=== PATIENT | female | born 1955 | race Caucasian/White ===

== ENCOUNTER → 2020-11-10 | Day surgery (SDC) | payer MEDICARE ==
[~2020-11-10] MED LIST: AMLODIPINE BESY10 MG PO; FENTANYL CITRATE/PF 100MCG/2 ML INJ ONE; HYDROCHLOROTHIA25 MG PO; LETROZOLE2.5 MG PO; MIDAZOLAM HCL 2 MG/2 ML VIAL ONE; OR PHACO EYE KIT ONE; PREOP PHACO EYE KIT ONE
[2020-11-10 16:04] VITALS: BP 121/74
== END | disposition home or self-care (01) ==
LOC: OR 12:13
PROVIDERS: ATTEND Ophthalmology
DX: H25.12 Age-related nuclear cataract, left eye (principal); I10 Essential (primary) hypertension; Z88.8 Allergy status to other drugs, medicaments and biological substances; Z01.812 Encounter for preprocedural laboratory examination; Z20.828 Contact with and (suspected) exposure to other viral communicable diseases; Z85.3 Personal history of malignant neoplasm of breast
CPT/HCPCS: 66984; U0002; V2632

== ENCOUNTER → 2020-11-30 | Day surgery (SDC) | payer MEDICARE ==
[~2020-11-30] MED LIST changes: -FENTANYL CITRATE/PF 100MCG/2 ML INJ ONE; -MIDAZOLAM HCL 2 MG/2 ML VIAL ONE
[2020-11-30 14:15] VITALS: BP 119/88
== END | disposition home or self-care (01) ==
LOC: OR 11:29
PROVIDERS: ATTEND Ophthalmology
DX: H25.11 Age-related nuclear cataract, right eye (principal); I10 Essential (primary) hypertension; Z88.8 Allergy status to other drugs, medicaments and biological substances; Z01.812 Encounter for preprocedural laboratory examination; Z20.822 Contact with and (suspected) exposure to COVID-19; Z85.3 Personal history of malignant neoplasm of breast
CPT/HCPCS: 66984; U0002; V2632